=== PATIENT | female | born 1965 | race Two or more races ===

== ENCOUNTER 2024-09-06 08:20 | Day surgery (SDC) | payer MEDICAID, SELFPAY ==
--- NOTE | 2024-09-05 07:55 | EKG_ITS ---
[facility] Test Date: 2024-09-05 Pat Name: ALLISON MOLINA Department: Room: - Gender: Female Poising Inspector: EMILEE : 1965 Requested By: Godfrey Vee Order Number: [id number] Reading MD: Godfrey Vee Measurements Intervals [place] Rate: 78 P: 20 TX: 158 QRS: 2 QRSD: 77 T: 20 QT: 375 QTc: 428 Interpretive Statements SINUS RHYTHM No previous ECG available for comparison /[email or web address]/[email or web address]/[id number].pdf
[2024-09-05 10:16] LABS: Collection Type, Urine Clean Catch
[2024-09-05 10:55] LABS: Basophils % (Auto) 1 % (0-2.5); Eosinophils # (Auto) 0.1 Thou/mm3 (0.0-0.5); Eosinophils % (Auto) 2 % (0-10); Hematocrit 38.3 % (36.0-46.0); Immature Granulocytes % (Auto) 0 % (0-0); Immature Granulocytes Auto 0.01 Thou/mm3 (0.00-0.00); Lymphocytes # (Auto) 2.4 Thou/mm3 (1.0-4.8); Lymphocytes % (Auto) 37 % (10-50); Mean Corpuscular HGB Conc 33.9 g/dl (31.0-37.0); Mean Corpuscular Hemoglobin 31.1 pg (25.0-35.0); Mean Corpuscular Volume 92 fL (80-100); Monocytes # (Auto) 0.6 Thou/mm3 (0.0-0.8); Monocytes % (Auto) 9 % (0-12); Neutrophils # (Auto) 3.3 Thou/mm3 (1.8-7.7); Neutrophils % (Auto) 52 % (37-80); Nucleated Red Blood Cell % 0 /100 WBC (0); Platelet Count 265 Thou/mm3 (140-440); RDW Standard Deviation 43.4 fL (36.4-46.3); Red Blood Count 4.18 Miln/mm3 (4.00-5.20); White Blood Count 6.4 Thou/mm3 (3.6-11.0)
[2024-09-05 10:58] LABS: Partial Thromboplastin Time 28.4 Seconds (22.0-36.0); Prothrombin Time 11.3 Seconds (9.0-12.2)
[2024-09-05 11:03] LABS: Bilirubin,Urine Negative (Negative); Blood,Urine Negative (Negative); Clarity,Urine Clear (Clear/Hazy); Color,Urine Yellow (Lt Yel-Yel); Glucose, Urine Negative (Negative); Ketones,Urine Negative (Negative); Leukocyte Esterase,Urine Negative (Negative); Nitrite,Urine Negative (Negative); Protein,Urine Trace (Neg - Trace); RBC,Urine 1 /hpf (0-3); Specific Gravity,Urine 1.018 (1.001-1.035); Squamous Epithelial Cell,Urine 4 /hpf (0-5); Urobilinogen,Urine Negative mg/dL (0.0-1.0); WBC,Urine 1 /hpf (0-5)
[2024-09-05 11:12] LABS: Alanine Aminotransferase 11 U/L (10-49); Albumin, Serum 4.7 gm/dL (3.5-5.0); Albumin/Globulin Ratio 1.3 (1.2-2.2); Alkaline Phosphatase 78 U/L (46-116); Anion Gap 8 (7-16); Aspartate Amino Transferase 18 U/L (0-34); BUN/Creatinine Ratio 18 Ratio (12-20); Bilirubin,Total 0.8 mg/dL (0.3-1.2); Blood Urea Nitrogen 22 mg/dL (9-23); Calcium 9.7 mg/dL (8.3-10.6); Calcium (Corrected) 9.7 mg/dL (8.5-10.1); Carbon Dioxide 27.5 mMol/L (20.0-31.0); Chloride 102 mMol/L (98-107); Creatinine (Component) 1.2 mg/dL (0.6-1.3); Globulin 3.6 gm/dL (2.3-3.5); Glucose 94 mg/dL (74-106); Osmolality,Calculated 277 (275-295); Potassium 3.8 mMol/L (3.4-5.1); Sodium 137 mMol/L (136-145); Total Protein 8.3 gm/dL (5.7-8.2); eGFR 52 See Note
--- NOTE | 2024-09-05 21:35 | PD.SURHP ---
HPI Date of Admission 09/06/2024 Chief Complaint Chief Complaint: Sceening colonoscopy and GERD HPI This 59 years old diabetic needs screening colonoscopy. She also has significant refractory GERD and wants antireflux surgery. She will under go upper and lower GI endoscopy possible polypectemy possible biopsy. Informed consent was obtained. Exam Constitutional Constitutional: no acute distress Routine HEENT Exam Head: Present normocephalic Eye: Present EOMI and PERRL ENT: Present mucous membranes moist Routine Neck Exam Neck: Present supple and trachea midline Routine Chest/Breast/Axilla Exam Chest wall: Absent tenderness or mass Routine Respiratory Exam Respiratory: Present chest non-tender, lungs clear, normal breath sounds and no resp distress; Absent respiratory distress Routine Cardiovascular Exam Cardiovascular: Present RRR Routine Abdominal Exam Abdominal: Present soft and normoactive bowel sounds Routine Extremities Exam Extremities: Present full ROM Routine Skin Exam Skin: Present intact, dry and warm Routine Neurological Exam Neurological: Present alert, oriented X3 and CN II-XII intact Routine Psychiatric Exam Psychiatric: Present normal affect and normal thought process Assessment & Plan Problem List (1) Encounter for screening colonoscopy: Status: Acute (2) GERD (gastroesophageal reflux disease): Qualifiers: Esophagitis presence: esophagitis presence not specified Qualified Code(s): K21.9 - Gastro-esophageal reflux disease without esophagitis Status: Acute Plan Upper and lower GI endoscopy possible polypectomy. Informed consent was obtained. Quality Measures Quality Measures none
[2024-09-06] VITALS (13 sets, daily range): BP systolic 87–115; BP diastolic 51–73; PULSE 68–92; RESP 11–17; TEMP 36.2–36.4; O2SAT 97–100; BMI 32.1
[2024-09-06] MEDS: RINGERS LACTATED 1000 ML 1,000 ML 60 ML IV (10:05)
--- NOTE | 2024-09-06 12:12 | SUR.PHASEII ---
pt received from OR in recovery bay 1. pt asleep but responds to voice, breathing unlabored on room air. v/s stable. report received from Albina Hunt.
--- NOTE | 2024-09-06 12:33 | SUR.PHASEII ---
pt able to tolerate oral fluids without difficulty swallowing or nausea/vomiting.
--- NOTE | 2024-09-06 12:45 | SUR.PHASEII ---
report from nurse hampton. pt awake alert with vss preparing for discharge.
--- NOTE | 2024-09-06 13:00 | SUR.PHASEII ---
pt discharged with all belongings via wheelchair. denies pain and nausea. vss. tolerated po liquid and urinated. both pt and son verbalized understanding of discharge instructions.
== END 2024-09-06 13:00 | disposition home or self-care (01) ==
PROVIDERS: PCP Physician Assistant; Referring Provider Specialist; Visit Provider Specialist
PROC: 0DJD8ZZ Inspection of Lower Intestinal Tract, Via Natural or Artificial Opening Endoscopic (ICD-10-PCS; CPT 45378; principal; 2024-09-06 09:45)
PROC: (CPT 43239; 2024-09-06 09:45)
DX: Z12.11 Encounter for screening for malignant neoplasm of colon (principal); K64.9 Unspecified hemorrhoids; K57.30 Diverticulosis of large intestine without perforation or abscess without bleeding; E11.9 Type 2 diabetes mellitus without complications; K21.00 Gastro-esophageal reflux disease with esophagitis, without bleeding; Z01.810 Encounter for preprocedural cardiovascular examination
CPT/HCPCS: 45378; 36415; 80053; 81001; 85025; 85610; 85730; 93005; A4217; J1200; J2250; J3010; J7050; J7120